=== PATIENT | male | born 1980 | race Caucasian/White ===

== ENCOUNTER 2019-06-02 18:22 | Emergency (ER) | payer OTHER, SELFPAY ==
--- NOTE | ~2019-06-02 | CT_ITS ---
EXAMINATION: CT soft tissue neck wo con DATE: 06/02/2019 19:07 INDICATION: Esophageal obstruction TECHNIQUE: Computed tomography (CT) of the neck was performed without intravenous contrast. The dose- length product (DLP) was 799.61 mGy-cm. Automated exposure control and iterative reconstruction techn ique were employed. COMPARISON: None FINDINGS: A small amount of contrast was ingested. The commercial loan collection officer image demonstrates a den of pooling c ontrast which continues to an abrupt cut off in the distal esophagus. The CT portion of the examinati on partially images the upper portion of the contrast column. There are no pathologically enlarged ly mph nodes. The visualized portions of the thorax are normal. The osseous structures are unremarkable. IMPRESSION: 1. Distal esophageal obstruction. Reviewed, dictated and finalized at location A.
[2019-06-02 18:41] VITALS: BP 133/81; PULSE 88; RESP 16; TEMP 36.9; O2SAT 97
--- NOTE | 2019-06-02 18:42 | ED.GENADULT ---
HPI - General Adult General Chief complaint: Unspecified Stated complaint: food stuck in throat Time Seen by Provider: 06/02/19 18:32 Source: patient and RN notes reviewed Mode of arrival: ambulatory Limitations: no limitations History of Present Illness HPI narrative: patient thinks he may have a piece of steak stuck in his throat. Been there about 45 minutes. He had this once before. He has cannot swallow his own saliva. Onset (ago): minute(s) (45) Severity: mild Pain Consistency: constant Relieving factors: none Exacerbating factors: eating Associated symptoms: denies other symptoms Treatments prior to arrival: none Related Data Home Medications Medication Instructions Recorded Confirmed cefdinir 300 mg PO BID 06/02/19 06/02/19 Allergies Allergy/AdvReac Type Severity Reaction Status Date / Time No Known Allergies Allergy Verified 06/02/19 18:40 Review of Systems Review of Systems: All systems reviewed & are unremarkable except as noted in HPI and below PMFSH Past Medical History Medical History (Updated 06/02/19 @ 19:42 by Gerardo Pandey MD) History of esophageal dilatation Surgical History Surgical History (Updated 06/02/19 @ 18:58 by Gerardo Pandey MD) No history of previous surgery Social History Social History (Updated 06/02/19 @ 18:57 by Gerardo Pandey MD) Smoking status: Never smoker Alcohol intake: current Alcohol use details: Occasional Substance use: never Exam Const: General: no acute distress and alert Nutritional Appearance: well nourished Orientation/consciousness: patient oriented x3 HENMT: Head: normal to inspection Ears: external ears normal General nose exam: Normal external nose present Face and sinus: normal facial exam Mouth: Yes lip normal and Yes moist mucous membranes Throat: posterior oropharynx normal Eyes: Conjunctivae: conjunctivae normal Pupils: Equal, round and reactive pupils present EOM: EOMs intact bilaterally Neck: Neck: normal visual inspection, no lymphadenopathy, nontender and no tracheal deviation Resp: Effort & Inspection: normal respiratory effort Auscultation: clear to auscultation bilaterally Cardio: Rate: regular rate Rhythm: regular rhythm Heart sounds: no murmurs GI: GI Palp: Yes Soft to palpation and No Tenderness to palpation present (GI) Auscultation: normal bowel sounds Skin: General skin exam: normal color Rashes: no rashes Neuro: General: patient oriented x3, moves all extremities and no meningeal signs Speech: normal speech Extrem: General: normal to inspection and no clubbing, cyanosis or edema Psych: Appearance: grossly normal and well kempt Mental Status: mental status grossly normal Affect: normal affect Attitude: cooperative Thought content: Yes Normal thought content present Course Course Emergency Course: Patient has decided that he does not want to be transferred overnight at another hospital. He was originally planned that he would be admitted under observation have EGD in the morning. He has declined. He understands he will not be getting any intravenous fluids. He will not be getting any nutrition overnight. He has a risk of aspiration pneumonia that could lead to his . He understands these risks and signs is AMA paper. He is strongly encouraged if he has no complications through the night to go to the emergency room and [facility] 1st thing in the morning to see if he can get the EGD and treatment that he will need to clear his esophageal obstruction. Consultations Consultation #1: I spoke with Dr. Vincent bridge operator slip. He recommended patient be admitted overnight and he would do EGD in the morning. In order for that to be done we would have to transfer the patient. Date: 06/02/19 Time: 19:55 Vital Signs Vital signs: Vital Signs Temperature 36.9 C 06/02/19 18:41 Pulse Rate 88 06/02/19 18:41 Respiratory Rate 16 06/02/19 18:41 Blood Pressure 133/81
--- NOTE | 2019-06-02 19:52 | PC.NURSE ---
RN SPOKE WITH YOUNG LEYVA TRACK EQUIPMENT OPERATOR, AT 1941 IN REGARDS TO TRANSFER. AUTUMN DIRECTED RN TO CONTACT DR. VELÁSQUEZ TO SEE IF HE WAS AVAILABLE TO COME TO [place] EMERGENTLY. DR. VELÁSQUEZ RETURNED PHONE CALL TO RN AT 1953 AND SPOKE WITH NIALL.
--- NOTE | 2019-06-02 20:32 | PC.NURSE ---
1954 RN SPOKE WITH YOUNG LEYVA GAS LINE SERVICER, FOR REQUEST OF TRANSFER WITH DR. VELÁSQUEZ CONSULTING. AWAITING CALL BACK FROM HOSPITALIST.
--- NOTE | 2019-06-02 20:42 | PC.NURSE ---
2033 DR. BUCKLEY[facility] CONTACTED RN AT THIS TIME. RN EXPLAINED TO DR. BUCKLEY THAT PATIENT HAS JUST DECIDED TO SIGN OUT AGAINST MEDICAL ADVICE.
[2019-06-02 20:43] VITALS: RESP 15; O2SAT 100
== END 2019-06-02 20:40 | disposition left against medical advice (07) ==
PROVIDERS: Emergency Provider Emergency Medicine
DX: K22.2 Esophageal obstruction (principal)
CPT/HCPCS: 70490; 99284

== ENCOUNTER 2019-06-03 05:09 | Emergency (ER) | payer OTHER, SELFPAY ==
[2019-06-03 05:24] VITALS: BP 129/90; PULSE 71; RESP 20; TEMP 36.9; O2SAT 98
[2019-06-03 05:30] VITALS: O2SAT 99
--- NOTE | 2019-06-03 06:08 | ED.GENADULT ---
HPI - General Adult General Chief complaint: Unspecified Stated complaint: Steak stuck in throat Time Seen by Provider: 06/03/19 06:06 Source: patient Mode of arrival: ambulatory Limitations: no limitations History of Present Illness HPI narrative: Patient is a 38-year-old healthy male who presents for evaluation of esophageal foreign body. Patient reports that he swallowed a piece of steak yesterday evening with dinner, immediately felt that he was unable to swallow it, and has been experiencing vomiting and difficulty tolerating his own saliva since that time. Patient was seen at [facility], gastroenterology was consulted and recommended admitting the patient overnight after imaging confirmed there was a piece of food present in the esophagus. There is no evidence of esophageal rupture with this. Patient declined transfer or staying overnight in the hospital due to current pandemic, patient decided to leave AGAINST MEDICAL ADVICE, went home and then presented to our facility this morning. Patient has continued to have vomiting overnight. Patient denies chest pain or shortness of breath. No recent fever, cough or cold illnesses. No pain. Related Data Home Medications Medication Instructions Recorded Confirmed cefdinir 300 mg PO BID 06/02/19 06/02/19 Allergies Allergy/AdvReac Type Severity Reaction Status Date / Time No Known Allergies Allergy Verified 06/03/19 05:31 Review of Systems Review of Systems: Narrative: CONSTITUTIONAL: Denies fever ENT: Denies rhinorrhea, congestion CARDIOVASCULAR: Denies chest pain RESPIRATORY: Denies cough GASTROINTESTINAL: Denies abdominal pain, reports nausea and vomiting GENITOURINARY: Denies dysuria or hematuria. [facility] Past Medical History Medical History History of esophageal dilatation Surgical History Surgical History No history of previous surgery Social History Social History Smoking status: Never smoker Alcohol intake: current Substance use: never Exam Narrative: Exam Narrative: GENERAL: Awake, alert, conversant HEAD: Normocephalic, atraumatic. EYES: PERRLA and EOMI. ENT: Nares clear, no rhinorrhea or epistaxis. Mucous membranes moist. NECK: Supple. CHEST: No respiratory distress, breathing even and non labored HEART: Regular rate, sinus rhythm ABDOMEN:Non distended, non tender EXTREMITIES: Normal range of motion. No edema. SKIN: Warm, dry, no rash. NEURO:No focal deficits. Alert and oriented x3 Course Course Emergency Course: Patient presented for assessment after he had left [facility] for a distal esophageal impaction. Shared decision-making occurred, patient was open to trying conservative therapy of glucagon, sublingual nitroglycerin, and drinking a carbonated beverage/jumping in effort to see if we could get the food bolus to pass. I presented the benefits and the risks which benefit would be the food bolus passing versus risk of further vomiting, esophageal damage if we were unsuccessful. Patient really wanted to avoid an endoscopy with sedation this morning, thus he was open to trying this and it was successful. Patient was able to get the food bolus to pass and was able to tolerate oral intake without vomiting. He had actually no recurrent vomiting while in the ER. He had no chest pain, shortness of breath, nausea. Patient was monitored over the course of an hour and had no recurrent symptoms and known development of new symptoms. Patient is okay to follow-up outpatient with Dr. Vincent. I let Dr. Vincent know what had occurred with the patient, and he will see patient in office for EGD outpatient. Pt was then discharged home. Vital Signs Vital signs: Vital Signs Temperature 36.9 C 06/03/19 05:24 Pulse Rate 71 06/03/19 05:24 Respiratory Rate 20 06/03/19 05:2
[2019-06-03] MEDS: NITROGLYCERIN SL 0.4 MG TABLET SUBLINGUAL (06:31)
[2019-06-03] MEDS: GLUCAGON FOR INJ 1 MG VIAL IV CONT (06:31)
[2019-06-03] MEDS: ONDANSETRON INJ 4 MG/2 ML VIAL IV PUSH (06:31)
[2019-06-03 06:49] LABS: Blood Urea Nitrogen 24 mg/dL (9-20); Calcium 10.1 mg/dL (8.4-10.2); Carbon Dioxide 30 mmol/L (22-30); Chloride 102 mmol/L (98-107); Estimated Glomerular Filt Rate > 60; Glucose 109 mg/dL (75-110); Potassium 4.1 mmol/L (3.4-5.0); Sodium 142 mmol/L (137-145)
[2019-06-03 07:23] VITALS: BP 125/65; PULSE 90; RESP 19; O2SAT 100
== END 2019-06-03 07:25 | disposition home or self-care (01) ==
PROVIDERS: Emergency Provider Emergency Medicine
DX: T18.128A Food in esophagus causing other injury, initial encounter (principal)
CPT/HCPCS: 36415; 80048; 96374; 96375; 99284; A9270; J1610; J2405